=== PATIENT | male | born 1975 | race Caucasian/White ===

== ENCOUNTER 2021-01-14 17:33 | Emergency (ER) | payer OTHER, SELFPAY ==
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
[2021-01-14 17:19] VITALS: BP 168/85; PULSE 99; RESP 18; TEMP 36.9; O2SAT 100
== END 2021-01-14 18:45 | disposition home or self-care (01) ==
PROVIDERS: Emergency Provider Emergency Medicine; PCP Nurse Practitioner Family
DX: S13.4XXA Sprain of ligaments of cervical spine, initial encounter (principal); V43.52XA Car driver injured in collision with other type car in traffic accident, initial encounter
CPT/HCPCS: 72125; 72128; 99284

== ENCOUNTER 2024-07-10 06:04 | Day surgery (SDC) | payer OTHER, SELFPAY ==
[2024-05-21 12:10] VITALS: BMI 24.8
[2024-07-10 06:40] VITALS: BP 111/74; PULSE 66; RESP 16; TEMP 37.2; O2SAT 100
[2024-07-10] MEDS: LACTATED RINGERS 1,000 ML 150 ML IV CONT (06:46)
--- NOTE | 2024-07-10 07:07 | PM.HPGS ---
History of Present Illness History of Present Illness Consent: Risks, benefits, and alternatives have been discussed and questions answered. Patient agrees to proceed with procedure. Chief complaint: Neoplasm Screening Narrative: Cam Barrera is a 49 year old male presents for screening colonoscopy. Patient diet and bowel movements are normal. Patient denies abdominal pain. He has had no bleeding. Family history is noncontributory. Review of Systems Review of Systems: All systems reviewed & are unremarkable except as noted in HPI and below [facility] Social History Social History (Updated 01/14/21 @ 17:52 by Dorota Fang MD) Smoking status: Never smoker Alcohol intake: current Drinks per week: 2 Substance use: never Substance use type: does not use Living arrangements: with family Gender identity (if verbalized by the patient): Male Meds Home Medications and Allergies Home Medications Medication Instructions Recorded Confirmed Type sodium,potassium,mag sulfates 17.5 See Rx Instructions PO .COMPLEX 05/21/24 06/20/24 Rx gram-3.13 gram-1.6 gram oral soln #354 mL (Suprep Bowel Prep Kit) atorvastatin 10 mg tablet 10 mg PO DIRECTED 06/20/24 06/20/24 History Allergies Allergy/AdvReac Type Severity Reaction Status Date / Time No Known Allergies Allergy Verified 06/20/24 13:01 Vital Signs Vital Signs - 24 hr 07/10/24 06:40 Temperature 98.9 F Pulse Rate 66 Respiratory Rate 16 Blood Pressure 111/74 Pulse Oximetry 100 Oxygen Delivery Room Air Exam Narrative: Physical exam reveals patient to be alert. Vital signs stable. HEENT exam is unremarkable. Patient is anicteric. Lungs are clear to auscultation and percussion. Heart is without murmur or extra sounds. Abdomen bowel sounds are present soft nontender with no organomegaly. Digital external rectal exam normal. Assessment and Plan Assessment and plan (1) Screen for colon cancer: Code(s): Z12.11 - Encounter for screening for malignant neoplasm of colon Status: Acute Assessment and Plan: Patient presents for neoplasia screening colonoscopy. He appears to be at average risk for colon polyps. Further recommendations may be given after endoscopy.
--- NOTE | 2024-07-10 07:11 | WPDANESEPPF ---
Anes - Initial Pre Proc Eval Procedure: Operation Date: 07/10/24 08:00 Proposed Procedures p Screening Colonoscopy - Johnnie Camacho MD Date/Time: 07/10/24 07:11 Surgeon: Johnnie Camacho MD Pre Op Diagnosis: Neoplasm Screening Patient Data Age: 49 Gender: M Height: 1.85 m Weight: 84.5 kg Last Vital Signs Temp 37.2 C 07/10/24 06:40 Pulse 66 07/10/24 06:40 Resp 16 07/10/24 06:40 BP 111/74 07/10/24 06:40 Pulse Ox 100 07/10/24 06:40 O2 Del Method Room Air 07/10/24 06:40 Allergies Allergy/AdvReac Type Severity Reaction Status Date / Time No Known Allergies Allergy Verified 06/20/24 13:01 Home Medications Medication Instructions Recorded Confirmed Type sodium,potassium,mag sulfates 17.5 See Rx Instructions PO .COMPLEX 05/21/24 06/20/24 Rx gram-3.13 gram-1.6 gram oral soln #354 mL (Suprep Bowel Prep Kit) atorvastatin 10 mg tablet 10 mg PO DIRECTED 06/20/24 06/20/24 History Patient hx anesthesia problems: none Family hx anesthesia problems: none Results Review: All pre-operative results and documents have been reviewed as part of the pre-operative evaluation. [facility] Past Medical History Medical History (Updated 07/10/24 @ 07:12 by Jose Rafael Thompson MD) Hyperlipidemia Surgical History Surgical History (Updated 07/10/24 @ 07:12 by Jose Rafael Thompson MD) S/P cervical spinal fusion Social History Social History Smoking status: Never smoker Alcohol intake: current Drinks per week: 2 Substance use: never Substance use type: does not use Living arrangements: with family Gender identity (if verbalized by the patient): Male Anes - Eval Final PreProcedure Day of Procedure 07/10/24 07:11 Patient weight: normal Heart: regular rate and rhythm Lungs: clear to auscultation Airway: Mallampati scale class II Neurological: alert and oriented Last oral intake: >/= 8 hours ASA classification: II Emergent: no Anesthetic plan: proceed Anesthesia type and monitoring: general GIVS and standard monitoring Results Review: All pre-operative results and documents have been reviewed as part of the pre-operative evaluation. Informed Consent: The patient's anesthetic plan and its attendant risks and benefits were discussed with the patient/family/POA. Questions were solicited and answers provided to the satisfaction of the patient/family/POA.
[2024-07-10 08:14] VITALS: BP 98/64; PULSE 70; RESP 18; O2SAT 100
[2024-07-10 08:24] VITALS: BP 91/53; PULSE 66; RESP 18; O2SAT 100
--- NOTE | 2024-07-10 08:25 | WPDANESPN ---
Anes - Prog Note Post-Op Date/Time: 07/10/24 08:25 Cardiovascular status: normal Respiratory status: normal Airway patency: baseline Mental status: baseline Post-Op hydration status: normal Vital Signs: Last Vital Signs Temp 37.2 C 07/10/24 06:40 Pulse 70 07/10/24 08:14 Resp 18 07/10/24 08:14 BP 98/64 L 07/10/24 08:14 Pulse Ox 100 07/10/24 08:14 O2 Del Method Room Air 07/10/24 08:14 Pain Score (VAS): 0/10 I/O: Intake & Output 07/09/24 07/10/24 07/10/24 23:59 07:59 15:59 Intake Total 400 Balance 400 Patient Feedback: Patient satisfied with anesthetic care.
[2024-07-10 08:34] VITALS: BP 108/66; PULSE 75; RESP 18; O2SAT 100
== END 2024-07-10 08:45 | disposition home or self-care (01) ==
PROVIDERS: PCP Family Medicine; Visit Provider Internal Medicine Gastroenterology
PROC: 0DJD8ZZ Inspection of Lower Intestinal Tract, Via Natural or Artificial Opening Endoscopic (ICD-10-PCS; CPT 45378; principal; 2024-07-10 08:00)
DX: Z12.11 Encounter for screening for malignant neoplasm of colon (principal); K64.8 Other hemorrhoids
CPT/HCPCS: 45378